=== PATIENT | male | born 1975 | race American Indian/Alaskan Native ===

== ENCOUNTER 2019-11-14 19:33 | Emergency (ER) | payer BC | END 2019-11-14 22:03 | disposition home or self-care (01) | LOC: ED 19:33 | DX: R51 Headache (principal); H53.149 Visual discomfort, unspecified; F17.200 Nicotine dependence, unspecified, uncomplicated; Z98.890 Other specified postprocedural states; Z79.899 Other long term (current) drug therapy | CPT/HCPCS: 70450; 96372; 99283; J1100 ==